=== PATIENT | female | born 1935 | race Two or more races ===

== ENCOUNTER 2025-01-21 15:41 | Emergency (ER) | payer OTHER ==
[~2025-01-21] VITALS: Ht 152.4 cm; Wt 47.6 kg
[2025-01-21] MEDS ORDERED: PRIMACARE SOFT1 EACH (15:47)
[2025-01-21] MEDS ORDERED: VASOTEC10 MG (15:49)
[2025-01-21] MEDS ORDERED: ORPHENADRINE CITRATE 30 MG/ML AMPUL IM STA (16:04)
[2025-01-21] MEDS ORDERED: DEXAMETHASONE SODIUM PHOSPHATE 4 MG/ML VIAL IM STA (16:05)
[2025-01-21] MEDS ORDERED: DEXAMETHASONE SODIUM PHOSPHATE 4 MG/ML VIAL ONE (16:11)
[2025-01-21] MEDS ORDERED: ORPHENADRINE CITRATE 30 MG/ML AMPUL ONE (16:11)
[2025-01-21] MEDS ORDERED: ARTHRITIS PAIN650 M2 PO (18:28)
[2025-01-21] MEDS ORDERED: NORFLEX100MG PO (18:28)
== END 2025-01-21 18:54 | disposition home or self-care (01) ==
LOC: ER 16:52
DX: G89.11 Acute pain due to trauma (principal); M54.59 Other low back pain; I10 Essential (primary) hypertension; Z88.0 Allergy status to penicillin
CPT/HCPCS: 72100; 72170; 73630; 96372; 99283; J1100; J2360